=== PATIENT | female | born 1995 | race Caucasian/White ===

== ENCOUNTER 2016-09-14 13:42 | Outpatient (CLI) | payer OTHER ==
--- NOTE | 2016-09-14 18:47 | DIAGNOSTIC IMAGING REPORT ---
PROCEDURE: US BREAST ULTRASOUND - RIGHT INDICATION: Right breast lump at the 8 o'clock position. Family history of breast cancer in the grandmother. TECHNIQUE: Owen scale and color Doppler sonographic images of the right breast were acquired. COMPARISON: None. FINDINGS: Dense fibroglandular tissue is seen. There are multiple small cystic structures throughout the glandular tissue. In the 8 o'clock region of palpable abnormality, there is a collection of cysts or multi septated simple cyst measuring a total of 10 x 8 mm. There are no solid components, no peripheral or internal vascularity, and no shadowing. A small ovoid lymph node measuring 2.3 mm in short axis is identified in the upper outer quadrant. No solid lesions anywhere in the right breast by ultrasound exam. IMPRESSION: 1. Multi septated avascular cyst, collection of multiple tiny cysts, or ectatic duct seen in the 8 o'clock position corresponding to the patient's palpable abnormality. There are no suspicious features. 2. Fibrocystic breast tissue is seen with multiple sub-centimeter cystic areas. Again, no suspicious features. 3. The patient can resume yearly clinical screening and beginning screening mammography at age 38. Findings and recommendations were discussed with the patient. RESULT CODE: 2- Benign findings. A. A negative report should not delay biopsy if a dominant or clinically suspicious mass is present. 10-15% of cancers are not identified by x-ray. B. A negative report may reinforce clinical impression. C. Adenosis and dense breasts may obscure an underlying neoplasm. D. False positive reports average 6-10%. E.. A yearly screening mammogram is recommended. A reminder letter will be scheduled.
== END 2016-09-14 23:00 ==
LOC: US SRH 13:42
DX: N63 Unspecified lump in breast (principal)